=== PATIENT | female | born 1985 | race Caucasian/White ===

== ENCOUNTER 2017-07-28 18:30 | Outpatient (CLI) | payer OTHER, SELFPAY | END 2017-07-28 20:35 | disposition home or self-care (01) | LOC: WPOUT 18:36 → WP 18:38 | PROVIDERS: Family Provider Family Medicine; PCP Family Medicine; Visit Provider Obstetrics & Gynecology | DX: Z39.1 Encounter for care and examination of lactating mother (principal); P92.5 Neonatal difficulty in feeding at breast | CPT/HCPCS: 96152 ==